=== PATIENT | male | born 1980 | race Caucasian/White ===

== ENCOUNTER 2016-09-17 19:29 | Emergency (ER) | payer OTHER ==
[2016-09-17 20:13] VITALS: BP 127/88
--- NOTE | 2016-09-17 20:20 | UC ---
Complaint Male HPI - HPI Summary HPI Summary: complaint of lower back pain since [ain is more on the right hasn't been able to urinate for the last 3 days only drips of urine are coming out denies fever or chills this has occurred to him 1x in the past hasn't taken any medication for pain family hx of renal carcinoma - History of Current Complaint Chief Complaint: UCGU Stated Complaint: URINARY COMPLAINT Time Seen by Provider: 09/17/16 20:10 Hx Obtained From: Patient - Allergies/Home Medications Allergies/Adverse Reactions: Allergies Allergy/AdvReac Type Severity Reaction Status Date / Time Bee Venom Allergy Severe Anaphylatic Verified 09/17/16 19:54 Shock dimatap Allergy Severe seizures Uncoded 09/17/16 19:54 PMH/Surg Hx/FS Hx/Imm Hx Previously Healthy: Yes Endocrine History Of: Denies: Diabetes Cardiovascular History Of: Reports: Hypertension Denies: Pacemaker/ICD Respiratory History Of: Reports: Asthma - Surgical History Surgical History: Yes Surgery Procedure, Year, and Place: [facility]. lt knee surgery - Family History Known Family History: Positive: Cardiac Disease, Hypertension, Diabetes - Social History Occupation: Employed Part-time Lives: With Family Alcohol Use: None Substance Use Type: Excessive Caffeine Smoking Status (MU): Former Smoker Type: Cigarettes Amount Used/How Often: 1/2 ppd Length of Time of Smoking/Using Tobacco: 15 yrs Have You Smoked in the Last Year: Yes When Did the Patient Quit Smoking/Using Tobacco: 2012 - Immunization History Most Recent Influenza Vaccination: none Review of Systems Constitutional: Negative Skin: Negative Eyes: Negative ENT: Negative Respiratory: Negative Cardiovascular: Negative Gastrointestinal: Negative Genitourinary: Dysuria Motor: Negative Neurovascular: Negative Musculoskeletal: Negative Neurological: Negative Psychological: Negative All Other Systems Reviewed And Are Negative: Yes Physical Exam Triage Information Reviewed: Yes Appearance: Well-Nourished, Ill-Appearing Vital Signs: Initial Vital Signs Temp 98.7 F 09/17/16 19:48 Pulse 103 09/17/16 19:48 Resp 18 09/17/16 19:48 BP 127/88 09/17/16 19:48 Pulse Ox 99 09/17/16 19:48 Vital Signs Reviewed: Yes Eyes: Positive: Conjunctiva Clear ENT: Positive: Pharynx normal, TMs normal. Negative: Nasal congestion Neck: Positive: No Lymphadenopathy Respiratory: Positive: Lungs clear, Normal breath sounds Cardiovascular: Positive: RRR, No Murmur, Pulses Normal Abdomen Description: Positive: Nontender, No Organomegaly, Soft, CVA Tenderness (R), CVA Tenderness (L), Distended Bowel Sounds: Positive: Present Musculoskeletal: Positive: No Edema Neurological: Positive: Alert Psychological Exam: Normal Skin Exam: Normal Procedures - Procedure Summary Procedure Summary: RN placed urinary catheter 150cc urine removed from bladder Re-Evaluation - Re-Evaluation First Eval Change: Improved - 150cc urine output , less back pain Complaint Male Course/Dx - Course Course Of Treatment: will treat for possiblke pyleopnephrits or prostatitis and close followup with urology - Differential Dx/Diagnosis Differential Diagnosis/HQI/PQRI: Cancer, Prostatitis, Ureteral Calculi, Urinary Tract Infection Provider Diagnoses: dysuria, pyleonephritis - Physician Notifications Discussed Patient Care With: Dr Villanueva Time Discussed With Above Provider: 21:14 Discharge - Discharge Plan Condition: Stable Disposition: HOME Prescriptions: Ciprofloxacin TAB* [Cipro 500 MG TAB*] 500 mg PO BID #20 tab Patient Education Materials: Acute Pyelonephritis (ED), Dysuria (ED), Prostatitis (ED) Referrals: Estela Hodgson MD [Primary Care Provider] - Frank Olguin MD [Medical Doctor] - Additional Instructions: Start antibiotic as directed Take acetaminophen as needed for pain Call urology tomorrow for further evaluation and treatment If your symptoms worsen tonight or you get a fever please proceed to the emergency department
[2016-09-17] MEDS ORDERED: Ciprofloxacin TAB* 500 MG PO ONE (21:12)
[2016-09-17] MEDS ORDERED: Acetaminophen TAB* 325 MG PO ONE (21:25)
== END 2016-09-17 21:40 | disposition home or self-care (01) ==
LOC: UCCORT 19:29
DX: N10 Acute pyelonephritis (principal); R30.0 Dysuria; Z90.49 Acquired absence of other specified parts of digestive tract; Z87.891 Personal history of nicotine dependence
CPT/HCPCS: 51702; 81003; 87086; 99213; A9270-GY; G0463

== ENCOUNTER 2017-05-27 12:52 | Emergency (ER) | payer OTHER ==
[2017-05-27 13:05] VITALS: BP 156/94
--- NOTE | 2017-05-27 13:21 | UC ---
Complaint Male HPI - HPI Summary HPI Summary: Urinary obstruction for 4 days. He has not been able to urinate for several days. Since . There is low back pain as well. There is no leaking, fever , vomiting. There is no loss of appetite and he is eating and drinking normally he states. This has happened randomly in the past and he was being seen at [facility] about a year ago and he states they didnothave an explanation for it. He is concerned about kidney cancer as he has two relatives with the same presentation and they were both diagnosed with cancer. - History of Current Complaint Chief Complaint: UCGU Stated Complaint: BACK PAIN, UTI Time Seen by Provider: 05/27/17 13:01 Hx Obtained From: Patient Onset/Duration: Gradual Onset, Lasting Days Timing: Constant Severity Initially: Moderate Severity Currently: Moderate Location: Flank Aggravating Factor(s): Nothing Alleviating Factor(s): Nothing Associated Signs And Symptoms: Positive: Back Pain. Negative: Fever, Hematuria , Dysuria, Constipation, Blood in Stool, Rectal Pain, Penile Swelling, Penile Discharge - Allergies/Home Medications Allergies/Adverse Reactions: Allergies Allergy/AdvReac Type Severity Reaction Status Date / Time Bee Venom Allergy Severe Anaphylatic Verified 05/27/17 13:05 Shock dimatap Allergy Severe seizures Uncoded 05/27/17 13:05 PMH/Surg Hx/FS Hx/Imm Hx Previously Healthy: No - urinary obstruction. - Surgical History Surgical History: Yes Surgery Procedure, Year, and Place: [place]. lt knee surgery - Family History Known Family History: Positive: Cardiac Disease, Hypertension, Diabetes - Social History Alcohol Use: None Substance Use Type: Excessive Caffeine Smoking Status (MU): Former Smoker Type: Cigarettes Amount Used/How Often: 1/2 ppd Length of Time of Smoking/Using Tobacco: 15 yrs Have You Smoked in the Last Year: Yes When Did the Patient Quit Smoking/Using Tobacco: 2-3 years ago - Immunization History Most Recent Influenza Vaccination: none Review of Systems Genitourinary: Other - urinary obstruction. All Other Systems Reviewed And Are Negative: Yes Physical Exam Triage Information Reviewed: Yes Appearance: Well-Appearing, No Pain Distress, Well-Nourished Vital Signs: Initial Vital Signs Temp 97.6 F 05/27/17 13:02 Pulse 97 05/27/17 13:02 Resp 14 05/27/17 13:02 BP 156/94 05/27/17 13:02 Vital Signs Reviewed: Yes Eyes: Positive: Conjunctiva Clear ENT: Positive: TMs normal Neck: Positive: Supple, Nontender, No Lymphadenopathy Respiratory: Positive: Chest non-tender, Lungs clear, Normal breath sounds, No respiratory distress, No accessory muscle use Cardiovascular: Positive: RRR, No Murmur, Pulses Normal Abdomen Description: Positive: Nontender, No Organomegaly. Negative: CVA Tenderness (R), CVA Tenderness (L), Distended, Guarding Musculoskeletal: Positive: ROM Intact, No Edema Neurological: Positive: Alert, Muscle Tone Normal. Negative: Fatigued Skin: Negative: rashes Complaint Male Course/Dx - Course Course Of Treatment: No urine output for several days. He has had this before. He agrees to f/u with urology. Vitals and appetite intact. We will get labs and ct and place arizmendi. CT wnl. Urine output was a few 100cc and clear. Labs pending and urine clean. They again agree to f/u with urology. - Differential Dx/Diagnosis Provider Diagnoses: urinary obstruction Discharge - Discharge Plan Condition: Good Disposition: HOME Patient Education Materials: Arizmendi Catheter Placement and Care (ED) Referrals: Estela Hodgson MD [Primary Care Provider] - Lobo Scott MD [Medical Doctor] - 2 Days
--- NOTE | 2017-05-27 13:59 | RAD ---
CLINICAL HISTORY: Low back pain and "flank pain". Surgical history includes cholecystectomy. COMPARISON: Similar CT examination dated July 23, 2010 TECHNIQUE: Noncontrast CT examination of the abdomen and pelvis from the lung bases through the initial tuberosities. FINDINGS: VISUALIZED LUNG BASES: The visualized lung bases are grossly clear. There is no pleural effusion. ABDOMEN AND PELVIS: Evaluation of the solid organs and vasculature is limited without intravenous contrast. The liver, spleen, pancreas and adrenal glands are grossly normal in appearance. The gallbladder is surgically absent. The kidneys are normal in appearance without focal mass, calcification or signs of hydronephrosis. There is a Khoury catheter in the urinary bladder. Evaluation of the gastrointestinal tract is limited without oral contrast. The small and large bowel are not distended. The gas-filled appendix is identified in the right lower quadrant measuring 6 mm in diameter. There is no gross retroperitoneal or mesenteric lymphadenopathy. The pelvic viscera is normal in appearance. The abdominal aorta and iliac arteries are normal in course and diameter. There are no sinister bone lesions. IMPRESSION: 1. No renal calculi or signs of urinary obstruction identified. The patient's Khoury catheter appears to be appropriately positioned in the urinary bladder. 2. No CT apparent acute abnormalities otherwise.
[2017-05-28 11:21] LABS: Hematocrit 44 % (42-52); Mean Corpuscular HGB Conc 34 g/dl (31-36); Mean Corpuscular Hemoglobin 30 pg (27-31); Mean Corpuscular Volume 87 fL (80-94); Mean Platelet Volume 9 um3 (7.4-10.4); Red Blood Count 5.07 10^6/ul (4.0-5.4); Red Cell Distribution Width 14 % (10.5-15); White Blood Count 8.5 10^3/ul (3.5-10.8)
[2017-05-28 11:38] LABS: Albumin 4.5 g/dL (3.2-5.2); BUN/Creatinine Ratio 9.3 (8-20); Calcium 9.8 mg/dL (8.6-10.3); EGFR African American 101.1 (>60); EGFR Non-African American 78.6 (>60); Globulin 2.9 g/dL (2-4); Potassium 4.1 mmol/L (3.5-5.0); Total Bilirubin 0.4 mg/dL (0.2-1.0); Total Protein 7.4 g/dL (6.4-8.9)
== END 2017-05-27 14:39 | disposition home or self-care (01) ==
LOC: UCCORT 12:52
DX: N13.9 Obstructive and reflux uropathy, unspecified (principal); Z90.49 Acquired absence of other specified parts of digestive tract; Z87.891 Personal history of nicotine dependence
CPT/HCPCS: 36415; 51702; 74176; 80053; 81003; 85025; 87086; 99211; G0463

== ENCOUNTER 2017-09-01 18:20 | Emergency (ER) | payer OTHER ==
[2017-09-01 18:50] VITALS: BP 120/81
--- NOTE | 2017-09-01 19:13 | UC ---
General HPI - HPI Summary HPI Summary: PT IS C/O PRESSURE IN HIS HEAD AND FEELING LIKE PASSING OUT IF HE STANDS TO LONG. HE ALSO FEELS WOBBLY IF HE WALKS TO LONG. 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 HE HAD A SKIN BIOPSY TO THE FOREHEAD YESTERDAY AND NOTES A SECOND BIOPSY IS SCHEDULED TO HELP R/O SPREAD. NO VISION OR SPEECH DIFFICULTY. NO NUMB/WEAK EXTREMITIES. STATES FEELING FINE OTHERWISE. THIS ALL BEGAN UPON WAKING THIS AM. - History of Current Complaint Chief Complaint: UCGeneralIllness Stated Complaint: HEADACHE, FEELING FAINT S/P BIOPSY 08/31 Time Seen by Provider: 09/01/17 19:06 Hx Obtained From: Patient Onset/Duration: Sudden Onset Pain Intensity: 7 Associated Signs & Symptoms: Positive: Dizziness, Headache, Weakness. Negative : Cough, Chest Pain, Fever, Vomiting - Allergy/Home Medications Allergies/Adverse Reactions: Allergies Allergy/AdvReac Type Severity Reaction Status Date / Time dimatap Allergy Severe seizures Uncoded 09/01/17 18:35 bee venom Allergy Anaphylatic Uncoded 09/01/17 18:35 Shock Home Medications: Home Medications Lisinopril TAB* [Prinivil TAB 10 MG*] 40 mg QAM 09/01/17 [History Confirmed ] PMH/Surg Hx/FS Hx/Imm Hx - Additional Past Medical History Additional PMH: MELENOMA Cardiovascular History: Hypertension - Surgical History Surgical History: Yes Surgery Procedure, Year, and Place: [place]. lt knee surgery. biopsy - Family History Known Family History: Positive: Cardiac Disease, Hypertension, Diabetes - Social History Occupation: Unemployed Alcohol Use: None Substance Use Type: None Smoking Status (MU): Former Smoker Type: Cigarettes Amount Used/How Often: 1/2 ppd Length of Time of Smoking/Using Tobacco: 15 yrs Have You Smoked in the Last Year: Yes When Did the Patient Quit Smoking/Using Tobacco: 2-3 years ago - Immunization History Most Recent Influenza Vaccination: none Vaccination Up to Date: Yes Review of Systems Constitutional: Other - SWEATY Neurological: Headache, Other - DIZZY/LIGHT HEAD Is Patient Immunocompromised?: No All Other Systems Reviewed And Are Negative: Yes Physical Exam Triage Information Reviewed: Yes Appearance: Well-Appearing Vital Signs: Initial Vital Signs Temp 99 F 09/01/17 18:38 Pulse 97 09/01/17 18:38 Resp 16 09/01/17 18:38 BP 120/81 09/01/17 18:38 Pulse Ox 99 09/01/17 18:38 Vital Signs Reviewed: Yes Eyes: Positive: Conjunctiva Clear ENT: Positive: Pharynx normal, TMs normal. Negative: Nasal congestion, Nasal drainage Neck: Positive: Supple, Nontender, No Lymphadenopathy Respiratory: Positive: Lungs clear, Normal breath sounds, No respiratory distress Cardiovascular: Positive: RRR, No Murmur, Pulses Normal Abdomen Description: Positive: Nontender, No Organomegaly, Soft Bowel Sounds: Positive: Present Neurological: Positive: Alert, Muscle Tone Normal, Other: - cn 2-12 GROSSLY INTACT, S/V/M INTACT X4,. Negative: Lethargic Psychological Exam: Normal Skin Exam: Normal Skin: Positive: Other - Biopsy site forehad but not red or swollen and no rash. Course/Dx - Course Course Of Treatment: pt c/o moderated to severe COLE describes sense of presycope with standing. recently dx with melenoma. states awaiting another biopsy to determine risk for mets thus will trnasfer to ER where imagining of brain is available as this is a new and different Cole for the pt. report given to Courtney espinoza at [facility]. advised of melanoma hx with cole, dizzy, wobbly gait on hx thus will send for evaluation. pt left with a slow but steady gait. - Differential Dx - Multi-Symptom Provider Diagnoses: Headache, presyncope, hx melanoma Discharge - Discharge Plan Condition: Stable Disposition: TRANS HIGHER L OF CARE FAC Referrals: Yudy Mcelroy PA [Primary Care Provider] - Additional Instructions: LEAVE URGENT CARE AND HAVE YOUR FRIEND DRIVE YOU DIRECTLY TO THE ER.
== END 2017-09-01 19:33 | disposition short-term general hospital (02) ==
LOC: UCCORT 18:20
DX: R51 Headache (principal); R55 Syncope and collapse; Z85.820 Personal history of malignant melanoma of skin; I10 Essential (primary) hypertension; Z87.891 Personal history of nicotine dependence
CPT/HCPCS: 99212; G0463

== ENCOUNTER 2017-09-13 09:28 | Day surgery (SDC) | payer OTHER ==
[~2017-09-13 09:28] MED LIST: Buffered Lidocaine 0.9% SYRIN* 5 ML/SYR SYRINGE INTRADERM ONE
[2017-09-13] MEDS ORDERED: Heparin VIAL(*) 5000 UNITS/ML VIAL (FIVE THOUSAND) ONE (09:47)
[2017-09-13] MEDS ORDERED: ceFAZolin 2 GM in 100 MLS NS (*) BAG IVPB ONE (09:48)
[2017-09-13] MEDS ORDERED: Bacitracin OINTMENT* 0.5% 0.5 oz TUBE ONE (10:05)
[2017-09-13] MEDS ORDERED: BSS OPTH.SOL* BTL ONE (10:05)
[2017-09-13] MEDS ORDERED: Lidocaine 1% MPF wEPI 200,000* 30 ML SDV ONE (10:06)
[2017-09-13] MEDS ORDERED: Ondansetron INJ* 2 MG/ML VIAL IV PRN (10:42)
[2017-09-13] MEDS ORDERED: HYDROcodone/ACETAMIN 5-325 MG* 1 TAB PO PRN (10:42)
[2017-09-13] MEDS ORDERED: Acetaminophen TAB* 325 MG PO PRN (10:42)
[2017-09-13] MEDS ORDERED: Naloxone* 0.4 MG/ML 1 ML VIAL IV PRN (10:42)
[2017-09-13] MEDS ORDERED: fentaNYL* 50 MCG/ML 2 ML VIAL (100 MCG VIAL) ONE (11:00)
[2017-09-13] MEDS ORDERED: Midazolam* 1 MG/ML 2 ML VIAL (2 MG) ONE ×3 (11:00→12:38)
[2017-09-13] MEDS ORDERED: Propofol* 10 MG/ML 20 ML BTL IV PUSH ONE ×2 (11:35→12:30)
[2017-09-13] MEDS ORDERED: Lidocaine 2% PF * 5 ML VIAL ONE (11:35)
[2017-09-13] MEDS ORDERED: Mineral Oil Sterile, TOPICAL* 25 ML BTL ONE (11:37)
[2017-09-13 13:44] VITALS: BP 115/90
== END 2017-09-13 14:06 | disposition home or self-care (01) ==
LOC: OREAST 09:28
PROVIDERS: ATTEND Plastic Surgery
DX: C43.39 Malignant melanoma of other parts of face (principal); I10 Essential (primary) hypertension; J45.909 Unspecified asthma, uncomplicated; Z87.891 Personal history of nicotine dependence
CPT/HCPCS: 88305; A9270-GY; J1644; J2001; J2250; J2704; J3010

== ENCOUNTER 2018-01-24 14:11 | Emergency (ER) | payer OTHER ==
[2018-01-24 14:33] VITALS: BP 131/87
[2018-01-24] MEDS ORDERED: Ketorolac INJ* 30 MG/ML 1 ML VIAL IM ONE (14:56)
--- NOTE | 2018-01-24 15:04 | UC ---
Lower Extremity/Ankle HPI - HPI Summary HPI Summary: 37 yo male with the onset of right mid foot pain/swelling and redness x 4 days pain is severe and worse with wt bearing states that on 01/21 he went [facility] because the dorsum of his foot was fire engine red NO CALF PAIN OR SWELLING had venous dopplers which were reportedly normal started on keflex for cellulitis initially improved but now worse States that three to four yrs ago he had a similar episode of right foot pain saw multiple mds weeks later his entire leg swelled up and he was treated at [facility] for a DVT - History of Current Complaint Chief Complaint: UCLowerExtremity Stated Complaint: SWOLLEN/TINGLING RT FOOT Time Seen by Provider: 01/24/18 14:41 Hx Obtained From: Patient Onset/Duration: Gradual Onset, Lasting Days Severity Initially: Mild Severity Currently: Severe Pain Intensity: 10 Pain Scale Used: 0-10 Numeric Aggravating Factor(s): Standing, Ambulation Alleviating Factor(s): Rest Able to Bear Weight: Yes - Allergies/Home Medications Allergies/Adverse Reactions: Allergies Allergy/AdvReac Type Severity Reaction Status Date / Time brompheniramine Allergy See Comment Verified 01/24/18 14:33 [From Dimetapp (brompheniramine-PPA)] phenylpropanolamine Allergy See Comment Verified 01/24/18 14:33 [From Dimetapp (brompheniramine-PPA)] bee venom Allergy Anaphylatic Uncoded 01/24/18 14:33 Shock Home Medications: Home Medications Amitriptyline TAB* [Elavil TAB*] 25 mg PO BEDTIME 01/24/18 [History Confirmed ] Cephalexin CAP* [Keflex CAP*] 500 mg PO BID 01/24/18 [History Confirmed 01/24/18 ] PMH/Surg Hx/FS Hx/Imm Hx Previously Healthy: Yes Cardiovascular History: Hypertension, Deep Vein Thrombosis GI/ History: Ulcer - Surgical History Surgical History: Yes Surgery Procedure, Year, and Place: Cholecystectomy 2004. Left knee surgery. Biopsy forehead - Family History Known Family History: Positive: Cardiac Disease, Hypertension, Diabetes, Other - DVT - Social History Alcohol Use: None Substance Use Type: None Smoking Status (MU): Former Smoker Type: Cigarettes Amount Used/How Often: 1/2 ppd for 10 years Length of Time of Smoking/Using Tobacco: 15 yrs Have You Smoked in the Last Year: Yes When Did the Patient Quit Smoking/Using Tobacco: 2014 - Immunization History Most Recent Influenza Vaccination: none Vaccination Up to Date: Yes Review of Systems Constitutional: Negative Skin: Negative Eyes: Negative ENT: Negative Respiratory: Negative Cardiovascular: Negative Gastrointestinal: Negative Genitourinary: Negative Motor: Negative Neurovascular: Negative Musculoskeletal: Arthralgia Neurological: Negative Psychological: Negative Is Patient Immunocompromised?: No All Other Systems Reviewed And Are Negative: Yes Physical Exam Triage Information Reviewed: Yes Appearance: No Pain Distress, Well-Nourished Vital Signs: Initial Vital Signs Temp 99.1 F 01/24/18 14:28 Pulse 89 01/24/18 14:28 Resp 16 01/24/18 14:28 BP 131/87 01/24/18 14:28 Pulse Ox 100 01/24/18 14:28 Eyes: Positive: Conjunctiva Clear ENT: Positive: Hearing grossly normal. Negative: Nasal congestion, Nasal drainage, Trismus, Muffled voice, Hoarse voice Neck: Positive: Nontender, No Lymphadenopathy Respiratory: Positive: Lungs clear, Normal breath sounds, No respiratory distress, No accessory muscle use Cardiovascular: Positive: RRR, No Murmur Musculoskeletal: Positive: ROM Intact, No Edema, Other: - no calf pain or sweilling, tender dorsum of right mid foot Neurological: Positive: Alert Psychological Exam: Normal Skin Exam: Normal Diagnostics - Radiology No standard instances Xray Interpretation: No Acute Changes Radiology Interpretation Completed By: Radiologist Lower Extremity Course/Dx - Course Course Of Treatment: records reviewed from [place]. No DVT - Differential Dx/Diagnosis Provider Diagnoses: right foot pain of uncertain cause. ? tendonitis Discharge - Sign-Out/Discharge Documenting (check all that apply): Patient Departure - Discharge Plan Condition: Stable Disposition: HOME Patient Education Materials: Crutch Instructions (ED), Tendinitis (ED) Referrals: Cesar Dupont MD [Medical Doctor] - As Soon As Possible Estela Hodgson MD [Primary Care Provider] - 1 Week Additional Instructions: post op shoe crutches elevate I am unsure of the cause of your pain if symptoms worsen or if you develop calf pain or swelling go to the ER - Billing Disposition and Condition Condition: STABLE Disposition: Home Images Feet (Multiple View): 1 - very tender/sl swelling/hint of erthyema,. Good bilateral D.P. pulses,. NO CALF SWELLING OR TENDERNESS
--- NOTE | 2018-01-24 15:19 | RAD ---
INDICATION: Atraumatic right foot pain COMPARISON: None TECHNIQUE: AP, lateral, and oblique views were obtained. FINDINGS: The bony structures, joint spaces, and soft tissues are normal for age. IMPRESSION: NEGATIVE EXAMINATION.
[2018-01-24 20:04] LABS: ABS Basophils 0 10^3/ul (0-0.2); ABS Eosinophils 0.3 10^3/ul (0-0.6); ABS Monocytes 0.4 10^3/ul (0-0.8); ABS Neutrophils 5.2 10^3/ul (1.5-7.7); ABS Nucleated RBC 0 10^3/ul; Eosinophil % 3.9 % (0-6); Hematocrit 45 % (42-52); Hemoglobin 15.8 g/dl (14.0-18.0); Lymphocyte % 25.2 % (25-47); Mean Corpuscular HGB Conc 35 g/dl (31-36); Mean Corpuscular Hemoglobin 30 pg (27-31); Mean Corpuscular Volume 85 fL (80-94); Mean Platelet Volume 9.4 um3 (7.4-10.4); Nucleated Red Blood Cells % 0.1; Platelet Count 273 10^3/ul (150-450); Red Blood Count 5.26 10^6/ul (4.00-5.40); Red Cell Distribution Width 14 % (10.5-15)
[2018-01-24 20:16] LABS: EGFR Non-African American 73.1 (>60)
== END 2018-01-24 16:18 | disposition home or self-care (01) ==
LOC: UCCORT 14:11
DX: M79.671 Pain in right foot (principal); Z88.8 Allergy status to other drugs, medicaments and biological substances; I10 Essential (primary) hypertension; Z87.891 Personal history of nicotine dependence
CPT/HCPCS: 36415; 80048; 85025; 85652; 96372; 99213; G0463; J1885

== ENCOUNTER 2018-09-24 11:09 | Emergency (ER) | payer OTHER ==
[2018-09-24 11:45] VITALS: BP 126/90
--- NOTE | 2018-09-24 12:34 | UC ---
UC General HPI - HPI Summary HPI Summary: pt c/o 2 day hx R upper abdominal pain. worse with meals. no GB. Denies cough, sob, fever, n/v/d. 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 - History of Current Complaint Chief Complaint: UCAbdominalPain Stated Complaint: RUQ DISCOMFORT Time Seen by Provider: 09/24/18 12:25 Hx Obtained From: Patient Timing: Constant Pain Intensity: 5 - Allergy/Home Medications Allergies/Adverse Reactions: Allergies Allergy/AdvReac Type Severity Reaction Status Date / Time brompheniramine Allergy See Comment Verified 09/24/18 11:46 [From Dimetapp (brompheniramine-PPA)] phenylpropanolamine Allergy See Comment Verified 09/24/18 11:46 [From Dimetapp (brompheniramine-PPA)] bee venom Allergy Anaphylatic Uncoded 09/24/18 11:46 Shock PMH/Surg Hx/FS Hx/Imm Hx - Additional Past Medical History Additional PMH: melanoma Cardiovascular History: Hypertension Respiratory History: Asthma - Surgical History Surgical History: Yes Surgery Procedure, Year, and Place: Cholecystectomy 2005. Left knee surgery. Biopsy forehead - Family History Known Family History: Positive: Cardiac Disease, Hypertension, Diabetes, Other - DVT - Social History Alcohol Use: None Substance Use Type: None Smoking Status (MU): Former Smoker Type: Cigarettes Amount Used/How Often: 1/2 ppd for 10 years Length of Time of Smoking/Using Tobacco: 15 yrs Have You Smoked in the Last Year: Yes When Did the Patient Quit Smoking/Using Tobacco: 2014 - Immunization History Most Recent Influenza Vaccination: none Vaccination Up to Date: Yes Review of Systems All Other Systems Reviewed And Are Negative: Yes Gastrointestinal: Positive: Abdominal Pain Physical Exam Triage Information Reviewed: Yes Appearance: Well-Appearing Vital Signs: Initial Vital Signs Temp 98.5 F 09/24/18 11:37 Pulse 75 09/24/18 11:37 Resp 18 09/24/18 11:37 BP 126/90 09/24/18 11:37 Pulse Ox 99 09/24/18 11:37 Vital Signs Reviewed: Yes Eyes: Positive: Conjunctiva Clear ENT: Positive: Normal ENT inspection Neck: Positive: Supple, Nontender, No Lymphadenopathy Respiratory: Positive: Lungs clear, Normal breath sounds, No respiratory distress Cardiovascular: Positive: RRR, No Murmur Abdomen Description: Positive: Other: - +BS, soft, tender RUQ. No mass, HSM or CVA tenderness. No guarding or rebound tenderness. Musculoskeletal: Positive: ROM Intact Neurological: Positive: Alert Psychological: Positive: Age Appropriate Behavior Skin Exam: Normal Course/Dx - Course Course Of Treatment: [facility] called, Report given to Chelsea Mcdaniel NP. advised on 2 day hx RUQ pain that is worse with meals and that his GB was removed years ago. advised of concern for mets from a prior hx of melanoma on face that had spread to his testilcular skin. - Differential Dx - Multi-Symptom Differential Diagnoses: Other - prior hx GB removal. given pMH, metastatic disease is still a concern as is liver pathology aside from CA. doubt pulmonary. - Diagnoses Provider Diagnosis: RUQ abdominal pain Discharge - Sign-Out/Discharge Documenting (check all that apply): Patient Departure All imaging exams completed and their final reports reviewed: No Studies - Discharge Plan Condition: Stable Disposition: TRANS HIGHER LVL OF CARE FAC Referrals: Estela Hodgson MD [Primary Care Provider] - Additional Instructions: LEAVE HERE AND GO DIRECTLY TO THE [facility] DISCUSSED. DO NOT EAT OR DRINK. - Billing Disposition and Condition Condition: STABLE Disposition: Trans Higher Lvl of Care Fac - Attestation Statements Provider Attestation: I was available for consult. This patient was seen by the [facility]. The patient was not presented to, seen by, or examined by me. -Saleem
== END 2018-09-24 12:45 | disposition short-term general hospital (02) ==
LOC: UCCORT 11:09
DX: R10.11 Right upper quadrant pain (principal); I10 Essential (primary) hypertension; Z85.820 Personal history of malignant melanoma of skin; Z88.8 Allergy status to other drugs, medicaments and biological substances; Z91.030 Bee allergy status; Z87.891 Personal history of nicotine dependence
CPT/HCPCS: 99212; G0463

== ENCOUNTER 2023-03-05 20:00 | Inpatient (IN) ==
[2023-03-05] MEDS ORDERED: Al Hydrox/Mg Hydrox/Simet LIQ 30 ML UDC PO PRN (21:13)
[2023-03-05] MEDS ORDERED: Albuterol HFA INHALER 8 gm MDI INH PRN (21:15)
[2023-03-06] MEDS ORDERED: Vitamin THERAPEUTIC TAB PO SCH (09:00)
[2023-03-06 09:05] VITALS: BP 109/82
== END 2023-03-06 14:05 | disposition home or self-care (01) | DRG 755 ==
LOC: BSU 20:00
PROVIDERS: ADMIT Student in an Organized Health Care Education/Training Program; ATTEND Psychiatry & Neurology Psychiatry